=== PATIENT | female | born 1995 | race Caucasian/White ===

== ENCOUNTER 2020-01-20 10:29 | Emergency (ER) | payer OTHER ==
[2020-01-20 10:37] VITALS: BP 118/93; PULSE 93; RESP 18; TEMP 97.2
--- NOTE | 2020-01-20 10:55 | ED ---
Chest Pain HPI - General Chief Complaint: Chest Pain Stated Complaint: Chest wall pain Time Seen by Provider: 01/20/20 10:36 Source: patient Mode of arrival: ambulatory Limitations: no limitations - History of Present Illness Initial Comments: Patient is a 24-year-old female presenting to emergency Department with a chief complaint of breast pain. Patient reports yesterday she noted some green/aquino discharge that initially started in the right breast then developed similar discharge in the left breast as well. States both of her breasts feel slightly tender especially to palpation. States the pain is exacerbated whenever she is wearing a tight bra or the breasts are handing down while in standing or sitting position. Patient states she took multiple tests at home and is not . Denies any erythematous regions. Denies any breast masses. States she does typical breast examinations at home. Denies any known history of br east cancer in the family. Denies direct trauma to the breast. Review of Systems ROS Statement: Those systems with pertinent positive or pertinent negative responses have been documented in the HPI. ROS Other: All systems not noted in ROS Statement are negative. Past Medical History Additional Past Medical History / Comment(s): fibromyalgia History of Any Multi-Drug Resistant Organisms: None Reported Past Surgical History: No Surgical Hx Reported Past Psychological History: Anxiety Smoking Status: Current every day smoker Past Alcohol Use History: None Reported Past Drug Use History: Marijuana General Exam Limitations: no limitations General appearance: alert, in no apparent distress Head exam: Present: atraumatic, normocephalic, normal inspection Eye exam: Present: normal appearance, PERRL, EOMI Pupils: Present: normal accommodation ENT exam: Present: normal exam, mucous membranes moist Neck exam: Present: normal inspection, full ROM Respiratory exam: Present: normal lung sounds bilaterally, other (No masses palpated in either breast. No active nipple discharge noted. No signs of mastitis. No signs of erythema or overlying cellulitic skin changes.). Absent: chest wall tenderness Cardiovascular Exam: Present: regular rate, normal rhythm, normal heart sounds GI/Abdominal exam: Present: soft. Absent: distended, tenderness, guarding Extremities exam: Present: normal inspection, full ROM Back exam: Present: normal inspection, full ROM Neurological exam: Present: alert, oriented X3 Psychiatric exam: Present: normal affect, normal mood Skin exam: Present: warm, dry, intact, normal color Course Vital Signs 01/20/20 10:33 Temperature 97.2 F L Pulse Rate 93 Respiratory 18 Rate Blood Pressure 118/93 O2 Sat by Pulse 98 Oximetry Chest Pain MDM - Differential Diagnosis Chest Wall Syndrome - MDM Patient is a 24-year-old female presenting to the emergency department with a chief complaint of breast pain. On exam patient has bilateral tenderness in both breasts. No active discharge noted. No overlying cellulitic skin changes or signs of infection. No masses palpated. Patient does have bilateral green/aquino discharge. I suspect this is physiologic nipple discharge. UA shows no signs of . Advised the patient to follow with primary care. Return parameters were thoroughly discussed with patient is understanding and agreeable. Case discussed with physician. Disposition Clinical Impression: Bilateral nipple discharge, Galactorrhea in female Disposition: HOME SELF-CARE Condition: Stable Instructions (If sedation given, give patient instructions): Galactorrhea (ED) Additional Instructions: Follow-up with her primary care. Return to emergency department if symptoms worsen. Is patient prescribed a controlled substance at d/c from ED?: No Referrals: Javier Eng MD [Primary Care Provider] - 1-2 days Time of Disposition: 12:08
[2020-01-20] MEDS ORDERED: ACET/COD 300 MG/30 MG STARTER PACK 6 TAB BTL PO STA (12:47)
== END 2020-01-20 12:58 | disposition home or self-care (01) ==
LOC: EC 10:29
DX: O92.6 Galactorrhea (principal); F17.200 Nicotine dependence, unspecified, uncomplicated
CPT/HCPCS: 81025; 99283